=== PATIENT | male | born 1965 | race Caucasian/White ===

== ENCOUNTER 2016-07-09 10:57 | Emergency (ER) | payer OTHER ==
[~2016-07-09] VITALS: Ht 175.3 cm; Wt 77.0 kg
[~2016-07-09 10:57] MED LIST: ASPI1TAB69 PO; ATOR20TA15 PO; CYCL5TAB PO; GABA300C5 PO; LEVO-86 PO; MELO7.5T4 PO; OMEP40CA2 PO; QUET1TAB10 PO; SYNT137T PO; TRAM50TA PO; ZIPR1CAP6 PO
[2016-07-09 10:59] VITALS: BP 153/94; PULSE 83; RESP 14; TEMP 97.8; O2SAT 98
--- NOTE | 2016-07-09 11:29 | PD ---
Physical Exam Date Seen by Provider: Jul 09, 2016 Time Seen by Provider: 11:26 Narrative 50 year old male presents to the emergency department for evaluation of lower abdominal pain, 01/11, that started approximately 2 weeks ago. He reports history of bleeding ulcers. He reports bright red blood in his stools. VSS. Patient awaiting bed placement. Data Data Last Documented VS Vital Signs Date Time Temp Pulse Resp B/P Pulse Ox O2 Delivery O2 Flow Rate FiO2 07/09/16 10:59 97.8 83 14 153/94 98 MDM Supervised Visit with SHERICE: Alba Mckoy Jul 09, 2016 11:29
[2016-07-09] MEDS ORDERED: SODIUM CHLOR 0.9% 1000 ML INJ 1,000 ML IV SCH (11:50)
[2016-07-09 11:55] VITALS: BP 134/88; PULSE 87; RESP 16; O2SAT 100
[2016-07-09] MEDS ORDERED: PANTOPRAZOLE INJ 80 MG in SODIUM CHLORIDE 0.9% INJ 35 ML IV ONE (12:00)
[2016-07-09] MEDS ORDERED: SODIUM CHLORIDE 0.9% FLUSH 10 ML FLUSH IVF PRN (12:00)
[2016-07-09] MEDS ORDERED: PANTOPRAZOLE INJ 80 MG in SODIUM CHLORIDE 0.9% INJ 100 ML IV SCH (12:00)
[2016-07-09] MEDS ORDERED: ONDANSETRON HCL 4 MG/2 ML VIAL IVP ONE (12:00)
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
[2016-07-09] MEDS ORDERED: MORPHINE SULFATE 4 MG/ML INJ IV PUSH ONE (12:30)
[2016-07-09 12:33] LABS: AUTOMATED NEUTROPHIL # 5.9 TH/MM3 (1.8-7.7); BASOPHIL # 0.1 TH/MM3 (0-0.2); BASOPHIL % 0.6 % (0.0-2.0); EOSINOPHIL # 0.3 TH/MM3 (0-0.4); HEMATOCRIT 40.5 % (39.0-51.0); HEMO FLAGS DIFF FINAL; LYMPH % 22.8 % (9.0-44.0); LYMPHOCYTE # 2.1 TH/MM3 (1.0-4.8); MEAN CELL VOLUME 95.4 FL (80.0-100.0); MEAN CORPUSCULAR HEMOGLOBIN 33.1 PG (27.0-34.0); MEAN CORPUSCULAR HGB CONC 34.7 % (32.0-36.0); MONO % 8.8 % (0.0-8.0); NEUT % 64.8 % (16.0-70.0); PLATELET COUNT 361 TH/MM3 (150-450); RED BLOOD COUNT 4.25 MIL/MM3 (4.50-5.90); RED CELL DISTRIBUTION WIDTH 14.2 % (11.6-17.2)
[2016-07-09 12:41] LABS: APTT (PATIENT) 28.9 SEC (24.3-30.1); INTERNATIONAL NORMALIZED RATIO 0.9 RATIO
[2016-07-09 12:52] LABS: BLOOD, URINE NEG (NEG); COMMENT (UR) CULT NOT INDICATED; CULTURE IF INDICATED CULT NOT INDICATED; GLUCOSE,URINE NEG (NEG); KETONE, URINE NEG (NEG); NITRITE,URINE NEG (NEG); SQUAMOUS EPITHELIAL CELL URINE 1 /hpf (0-5); URINE COLOR LIGHT-YELLOW (YELLW/STRAW)
[2016-07-09 13:01] LABS: ANION GAP 7 MEQ/L (5-15); AST (GOT) 18 U/L (15-37); BICARBONATE 28.9 MEQ/L (21.0-32.0); BLOOD UREA NITROGEN 9 MG/DL (7-18); CHLORIDE 104 MEQ/L (98-107); GLOMERULAR FILTRATION RATE 103 ML/MIN (>89); POTASSIUM 3.6 MEQ/L (3.5-5.1); SODIUM (NA) 140 MEQ/L (136-145)
[2016-07-09 13:03] LABS: ALKALINE PHOSPHATASE 71 U/L (45-117); ALT (GPT) 27 U/L (12-78); TOTAL BILIRUBIN ADULT 0.4 MG/DL (0.2-1.0)
[2016-07-09] MEDS ORDERED: IOHEXOL 350 MG/ML 10 ML VIAL (for RAD DIAG) IV ONE (14:06)
[2016-07-09 14:08] VITALS: BP 140/72; PULSE 88; RESP 16; O2SAT 97
--- NOTE | 2016-07-09 14:39 | RADRPT ---
EXAM DATE/TIME: 07/09/2016 13:52 [facility] COMPARISON: CT KNEE RIGHT W/O CONTRAST, December 28, 2013, 13:07. INDICATIONS : Lower abdominal pain with bright red blood in stool. IV CONTRAST: 90 cc Omnipaque 350 (iohexol) IV ORAL CONTRAST: No oral contrast ingested. RADIATION DOSE: 9.96 CTDIvol (mGy) MEDICAL HISTORY : None SURGICAL HISTORY : None. ENCOUNTER: Initial ACUITY: 1 day PAIN SCALE: 3/10 LOCATION: Bilateral lower quadrant TECHNIQUE: Volumetric scanning of the abdomen and pelvis was performed. Using automated exposure control and ad justment of the mA and/or kV according to patient size, radiation dose was kept as low as reasonably achievable to obtain optimal diagnostic quality images. FINDINGS: The limited portion of the lung base visualized is clear. The appearance of the liver, spleen, pancreas, adrenal glands and kidneys is within normal limits. The appearance of the gallbladder is abnormal. The proximal gallbladder is well-distended. The apex o f the gallbladder appears thick walled and somewhat scarred. This may be the sequelae of old cholecys titis however I cannot exclude a small gallbladder mass. Followup to ensure stability would be jannet white. The abdominal aorta is normal in caliber. There is no retroperitoneal adenopathy. The visualized loops of small and large bowel demonstrate diffuse thickening of the colon from the le payal of the splenic flexure down to the rectum. There is no free fluid within the pelvis. No iliac or inguinal adenopathy is present. There is mild enlargement of the prostate. The visualized bony structures demonstrate degenerative changes but are otherwise intact. CONCLUSION: 1. The distal sigmoid colon appears decompressed however there is diffuse thickening of the colonic w all from the level of the splenic flexure down to the rectum. This is concerning for colitis. 2. Abnormal appearance of the apex of the gallbladder it appears quite thickened. This is probably th e sequelae of previous cholecystitis however I cannot exclude a gallbladder mass. Roman Ornelas on July 09, 2016 at 14:25 Board Certified Radiologist. This report was verified electronically.
[2016-07-09] MEDS ORDERED: CIPR-9 PO (14:49)
[2016-07-09] MEDS ORDERED: METR-1 PO (14:49)
[2016-07-09 14:59] VITALS: BP 143/75
[2016-07-15] MEDS ORDERED: BENT20TA PO (14:45)
[2016-08-23] MEDS ORDERED: GABA300C5 PO (08:29)
[2016-09-04] MEDS ORDERED: GABA300C5 PO (16:37)
[2016-09-04] MEDS ORDERED: CYCL5TAB PO (16:37)
[2016-09-09] MEDS ORDERED: LEVO-86 PO (21:25)
[2016-09-20] MEDS ORDERED: OMEP40CA2 PO (13:46)
[2016-10-03] MEDS ORDERED: CYCL5TAB PO (15:43)
== END 2016-07-09 15:12 | disposition home or self-care (01) ==
LOC: NEPE 10:57
DX: K52.9 Noninfective gastroenteritis and colitis, unspecified (principal); K82.8 Other specified diseases of gallbladder; K62.5 Hemorrhage of anus and rectum; E03.9 Hypothyroidism, unspecified; Z87.19 Personal history of other diseases of the digestive system; Z86.59 Personal history of other mental and behavioral disorders; Z87.39 Personal history of other diseases of the musculoskeletal system and connective tissue; Z86.69 Personal history of other diseases of the nervous system and sense organs
CPT/HCPCS: 74177; 80053; 81001; 83690; 85025; 85610; 85730; 86850; 86900; 86901; 96361; 96374; 96375; 99285; C9113; J2270; J2405; J7030; Q9967

== ENCOUNTER → 2016-07-21 | Outpatient (CLI) | payer OTHER ==
[~2016-07-21] MED LIST changes: +BENT20TA PO; +CIPR-9 PO; +METR-1 PO
[2016-07-21 11:44] LABS: ALKALINE PHOSPHATASE 71 U/L (45-117); ALT (GPT) 46 U/L (12-78); ANION GAP 8 MEQ/L (5-15); AST (GOT) 29 U/L (15-37); BLOOD UREA NITROGEN 9 MG/DL (7-18); CHLORIDE 107 MEQ/L (98-107); GLOMERULAR FILTRATION RATE 95 ML/MIN (>89); GLUCOSE,FASTING 95 MG/DL (74-99); POTASSIUM 5.1 MEQ/L (3.5-5.1); SODIUM (NA) 143 MEQ/L (136-145); TOTAL BILIRUBIN ADULT 0.3 MG/DL (0.2-1.0)
== END ==
LOC: CLAB 10:46
PROVIDERS: ATTEND Family Medicine
DX: K82.8 Other specified diseases of gallbladder (principal); E03.9 Hypothyroidism, unspecified
CPT/HCPCS: 36415; 80053; 84443